=== PATIENT | female | born 1945 ===

== ENCOUNTER 2022-09-06 05:45 | Day surgery (SDC) | payer OTHER ==
[~2022-09-06] VITALS: Ht 152.4 cm; Wt 59.0 kg
[~2022-09-06 05:45] MED LIST: ALLEGRA ALLERGY60 MG PO; AVAPRO300 MG PO; BUSPIRONE HCL10 MG PO; CRESTOR10 MG PO; FLONASE16 GM; GABAPENTIN400 MG PO; PROTONIX40 MG PO; TENORMIN50 M1 PO; ZOLOFT25 MG PO
[2022-09-06] MEDS ORDERED: PERCOCET 5-3251 EACH PO (08:46)
== END 2022-09-06 12:30 | disposition home or self-care (01) ==
LOC: CIR.AMB 05:45
PROVIDERS: ATTEND Surgery
DX: D35.1 Benign neoplasm of parathyroid gland (principal); E21.0 Primary hyperparathyroidism; Z20.822 Contact with and (suspected) exposure to COVID-19